=== PATIENT | female | born 1995 | race Caucasian/White ===

== ENCOUNTER 2020-04-20 18:49 | Emergency (ER) | payer OTHER ==
[~2020-04-20] VITALS: Ht 170.2 cm; Wt 68.0 kg
[2020-04-20] MEDS ORDERED: PRENATABS RX T1 EACH (19:33)
== END 2020-04-20 22:30 | disposition home or self-care (01) ==
LOC: ER 18:49
DX: O43.891 Other placental disorders, first trimester (principal); Z3A.08 8 weeks gestation of pregnancy

== ENCOUNTER 2020-11-24 12:15 | Emergency (ER) | payer OTHER ==
[~2020-11-24] VITALS: Ht 170.2 cm; Wt 72.6 kg
[~2020-11-24 12:15] MED LIST: PRENATABS RX T1 EACH
== END 2020-11-24 17:05 | disposition home or self-care (01) ==
LOC: ER 12:15
DX: O26.851 Spotting complicating pregnancy, first trimester (principal); O36.80X1 Pregnancy with inconclusive fetal viability, fetus 1; Z34.01 Encounter for supervision of normal first pregnancy, first trimester

== ENCOUNTER 2020-12-07 01:54 | Emergency (ER) | payer OTHER ==
[~2020-12-07] VITALS: Ht 170.2 cm; Wt 72.6 kg
== END 2020-12-07 05:51 | disposition home or self-care (01) ==
LOC: ER 01:54
DX: R10.2 Pelvic and perineal pain (principal); Z34.91 Encounter for supervision of normal pregnancy, unspecified, first trimester; Z3A.12 12 weeks gestation of pregnancy

== ENCOUNTER 2021-02-25 13:44 | Outpatient (CLI) | payer OTHER | END 2021-02-26 10:54 | disposition home or self-care (01) | LOC: OBS/DEL 13:44 | PROVIDERS: ATTEND Obstetrics & Gynecology | DX: O26.842 Uterine size-date discrepancy, second trimester (principal); O60.02 Preterm labor without delivery, second trimester; O26.892 Other specified pregnancy related conditions, second trimester; R10.2 Pelvic and perineal pain; Z3A.20 20 weeks gestation of pregnancy ==

== ENCOUNTER 2021-07-02 06:17 | Inpatient (IN) | payer OTHER ==
[~2021-07-02] VITALS: Ht 170.2 cm; Wt 81.6 kg
[2021-07-02] MEDS ORDERED: VALTREX1000 MG PO (07:18)
== END 2021-07-05 16:42 | disposition home or self-care (01) | DRG 806 ==
LOC: OB/GYN 06:17 → LDR 06:17 → OB/GYN 07-03 11:31
PROVIDERS: ADMIT Obstetrics & Gynecology; ATTEND Obstetrics & Gynecology
PROC: 10E0XZZ Delivery of Products of Conception, External Approach (ICD-10-PCS; principal; 2021-07-02)
PROC: 0HQ9XZZ Repair Perineum Skin, External Approach (ICD-10-PCS; 2021-07-02)
PROC: 4A1HXFZ Monitoring of Products of Conception, Cardiac Rhythm, External Approach (ICD-10-PCS; 2021-07-02)
DX: O99.824 Streptococcus B carrier state complicating childbirth (principal); O90.81 Anemia of the puerperium; D62 Acute posthemorrhagic anemia; O70.0 First degree perineal laceration during delivery; Z37.0 Single live birth; Z3A.38 38 weeks gestation of pregnancy

== ENCOUNTER 2023-02-05 01:37 | Emergency (ER) | payer OTHER ==
[~2023-02-05] VITALS: Ht 170.2 cm; Wt 71.7 kg
[~2023-02-05 01:37] MED LIST changes: +VALTREX1000 MG PO
[2023-02-05] MEDS ORDERED: PEPCID AC20 MG PO (04:30)
[2023-02-05] MEDS ORDERED: ACETAMINOPHEN500 M1 PO (04:30)
== END 2023-02-05 05:02 | disposition home or self-care (01) ==
LOC: ER 01:37
DX: R10.9 Unspecified abdominal pain (principal); B34.9 Viral infection, unspecified; Z20.822 Contact with and (suspected) exposure to COVID-19

== ENCOUNTER 2023-03-24 16:35 | Emergency (ER) | payer OTHER ==
[~2023-03-24] VITALS: Ht 170.2 cm; Wt 75.7 kg
[~2023-03-24 16:35] MED LIST changes: +ACETAMINOPHEN500 M1 PO; +PEPCID AC20 MG PO
== END 2023-03-24 20:22 | disposition home or self-care (01) ==
LOC: ER 16:35
DX: R00.2 Palpitations (principal)